=== PATIENT | female | born 1930 | race Caucasian/White ===

== ENCOUNTER 2016-12-02 14:30 | Emergency (ER) | payer BC, MEDICAID, MEDICARE ==
--- NOTE | 2016-12-02 14:55 | Emergency Department Record ---
History of Present Illness - General Chief Complaint: Shortness of breath Stated Complaint: BINB,CHEST PAIN Time Seen by Provider: 12/02/16 14:47 Source: Patient, Family Mode of Arrival: Wheelchair Limitations: Altered mental status - History of Present Illness Initial Comments: The patient is here due to a 3 day hx of mild SOB intermittently per family. The patient has a hx of significant Alzheimers Dz so obtaining a hx from her is not reliable. She also has shoulder and arm pain earlier today but that has resolved with a pain pill. The patient has had a hx of CHF in the past per Family. Presently she denies any pain, discomfort, dyspnea, or shortness of breath. MD Complaint: Shortness of breath Onset/Timin -: Days(s) Known History Of: Congestive heart failure - Related Data Previous Rx's Medication Instructions Recorded Hydrocodone/Acetaminophen [[place] 1 tab PO Q8H PRN #25 tab 11/15/15 7.5mg/325mg] Furosemide [Lasix] 20 mg PO DAILY #5 tablet 12/02/16 Potassium Chloride [Klor-Con M20] 20 meq PO DAILY #5 tab.er.prt 12/02/16 Allergies Allergy/AdvReac Type Severity Reaction Status Date / Time codeine Allergy Severe ANAPHYLAXIS Unverified 05/03/16 16:16 iodine Allergy Severe ANAPHYLAXIS Unverified 05/03/16 16:16 shellfish derived Allergy Severe ANAPHYLAXIS Unverified 05/03/16 16:16 Travel Screening - Travel/Exposure Within Last 30 Days Have you traveled within the last 30 days?: No - Travel/Exposure Within Last Year Have you traveled outside the [place] in the last year?: No - Additonal Travel Details Have you been exposed to anyone with a communicable illness?: No - Travel Symptoms Symptom Screening: None Review of Systems Constitutional: Denies: Chills, Fever Eyes: Denies: Eye discharge ENT: Denies: Congestion Respiratory: Denies: Cough, Dyspnea Past Medical History - SOCIAL HISTORY Smoking Status: Never smoker - RESPIRATORY Hx Respiratory Disorders: No - CARDIOVASCULAR Hx Cardio Disorders: Yes Hx CHF: Yes Hx Hypertension: Yes - NEURO Hx Neuro Disorders: Yes Hx Dementia: Yes Hx Headaches: Yes - GI Hx GI Disorders: No - Hx Genitourinary Disorders: No - ENDOCRINE Hx Endocrine Disorders: Yes Hx Thyroid Disease: Yes (hypo) - MUSCULOSKELETAL Hx Musculoskeletal Disorders: Yes Hx Arthritis: Yes - PSYCH Hx Psych Problems: No - HEMATOLOGY/ONCOLOGY Hx Hematology/Oncology Disorders: No Family Medical History Any Significant Family History?: No Physical Exam - General General Appearance: Alert, Cooperative, No acute distress - Head Head exam: Atraumatic, Normocephalic, Normal inspection - Eye Eye exam: Normal appearance, PERRL - Neck Neck exam: Normal inspection, Full ROM, Other (Neg JVD). negative: Tenderness - Respiratory Respiratory exam: Normal lung sounds bilaterally. negative: Respiratory distress - Cardiovascular Cardiovascular Exam: Regular rate, Normal rhythm, Normal heart sounds - GI/Abdominal GI/Abdominal exam: Soft, Normal bowel sounds. negative: Tenderness - Extremities Extremities exam: Normal inspection, Full ROM, Normal capillary refill. negative: Calf tenderness, Pedal edema, Tenderness - Neurological Neurological exam: Alert. negative: Motor sensory deficit Course Vital Signs 12/02/16 14:31 Temperature 98.7 F Pulse Rate 78 Respiratory 20 Rate Blood Pressure 174/94 Pulse Ox 96 - Reevaluation(s) Reevaluation #1: The patient is doing very well at this time. She denies any CP, SOB, or REYES. Her CXR does demonstrate possibly mild CHF with her BNP slightly elevated from her baseline. I did offer to keep the patient in the hospital overnight but her family is declining. They would just like to have the patient on a short course of Lasix and they feel the strange environment of a hospital would do her more harm than good. I did discuss the case with Cammy CARTER) and she agrees with the plan for discharge and F/U later this week in the office. 12/02/16 15:55 Reevaluation #2: The patient is doing very well at this time. She did urinate once and feels well. Her RA O2 sat is 96% and she feels ready for home. 12/02/16 16:28 Medical Decision Making - Data Complexity MDM Data: Labs Ordered and/or Reviewed, X-Ray Ordered and/or Reviewed, EKG Ordered and/or Reviewed - Lab Data Result diagrams: 12/02/16 14:40 12/02/16 14:40 - EKG Data -: EKG Interpreted by Me EKG: No Acute Changes - Radiology Data Radiology results: Report reviewed (CXR; Possible increased interstitial markings.) Disposition Disposition: Discharge Clinical Impression: CHF (congestive heart failure) Qualifiers: Congestive heart failure type: unspecified congestive heart failure type Congestive heart failure chronicity: unspecified congestive heart failure chronicity Qualified Code(s): I50.9 - Heart failure, unspecified Disposition: Home, Self-Care Condition: (1) Good Instructions: Dyspnea (ED) Additional Instructions: Please continue your regular medicines. Take the Lasix as directed. Please see your Family practice doctor later this week as planned. Return to the ER for any worsening symptoms. Prescriptions: Furosemide [Lasix] 20 mg PO DAILY #5 tablet Potassium Chloride [Klor-Con M20] 20 meq PO DAILY #5 tab.er.prt Forms: Patient Portal Access Time of Disposition: 16:30 Quality - Quality Measures Quality Measures: N/A - Blood Pressure Screening View Details: Yes Does Patient Have Any of the Following: No Blood Pressure Classification: Hypertensive Reading Systolic Measurement: 155 Diastolic Measurement: 92 Screening for High Blood Pressure: < Pre-Hypertensive BP, F/U Documented > [ G8950] Pre-Hypertensive Follow-up Interventions: Referral to alternative/primary care provider.
[2016-12-02 15:03] LABS: HEMATOCRIT 39.9 % (35.0-47.0); HEMOGLOBIN 13.2 gm/dl (11.6-16.0); MEAN CELL VOLUME 87.1 fl (81-97); MEAN CORPUSCULAR HEMOGLOBIN 28.8 pg (27-33); MEAN CORPUSCULAR HGB CONC 33.1 g/dl (32-36); MEAN PLATELET VOLUME 9.6 fl (7.4-10.4); PLATELET COUNT 345 K/uL (130-400); RED BLOOD COUNT 4.58 M/uL (3.80-5.40); RED CELL DISTRIBUTION WIDTH 14.3 % (11.5-14.5); WHITE BLOOD COUNT W/O DIFF 14.8 K/uL (4.2-12.2)
[2016-12-02 15:18] LABS: PLATELET ESTIMATE NORMAL (NORMAL)
[2016-12-02 15:29] LABS: BLOOD UREA NITROGEN 15 mg/dL (8-23); CREATINE PHOSPHOKINASE 21 U/L (26-192); CREATININE 0.6 mg/dL (0.5-0.9); EST GLOMERULAR FILTRATION RATE > 60 mL/min; GLUCOSE,RANDOM 167 mg/dL (74-109)
[2016-12-02 15:30] LABS: CKMB < 1.0 ng/mL (<3.77); TROPONIN I < 0.30 ng/mL (0.00-0.300)
[2016-12-02 15:31] LABS: INR 1.1; PARTIAL THROMBOPLASTIN TIME 30.3 SECONDS (24.5-39.1); PROTHROMBIN TIME (PATIENT) 11.9 SECONDS (9.5-12.1)
[2016-12-02] MEDS ORDERED: FUROSEMIDE IV 20MG/2ML VIAL IVP ONE (15:38)
--- NOTE | 2016-12-03 14:14 | RADIOLOGY REPORT ---
EXAM: CHEST, TWO VIEWS HISTORY: PATIENT HAS CHEST PAIN. TECHNIQUE: Two views of the chest are provided along with the comparison study dated 04/10/16. FINDINGS: The cardiac silhouette is magnified. Tortuosity of the thoracic aorta is noted. The lg appear unremarkable. There is no radiographic evidence of a focal infiltrate, pleural effusion, or pneumothorax. Chronic interstitial changes are identified bilaterally. Advanced osteoarthritic changes of the left shoulder are identified. IMPRESSION: STABLE CHRONIC INTERSTITIAL CHANGES WITH RESPECT TO THE PRIOR EXAMINATION DISCUSSED ABOVE WITHOUT RADIOGRAPHIC EVIDENCE OF AN ACUTE PROCESS. JOB NUMBER: [id number] [facility]
== END 2016-12-02 16:46 | disposition home or self-care (01) ==
LOC: ER 14:30
DX: I50.9 Heart failure, unspecified (principal); I10 Essential (primary) hypertension; G30.9 Alzheimer's disease, unspecified; F02.80 Dementia in other diseases classified elsewhere, unspecified severity, without behavioral disturbance, psychotic disturbance, mood disturbance, and anxiety
CPT/HCPCS: 71020; 80048; 82550; 82553; 83880; 84484; 85027; 85610; 85730; 93005; 93010; 96374; 99284; J1940

== ENCOUNTER 2017-05-04 13:53 | Emergency (ER) | payer MEDICARE ==
[2017-05-04] MEDS ORDERED: ACETAMINOPHEN 325 MG TAB PO ONE (14:15)
--- NOTE | 2017-05-04 14:21 | Emergency Department Record ---
History of Present Illness - General Chief complaint: Pain Stated complaint: HIP PAIN Time Seen by Provider: 05/04/17 14:10 Source: Patient, Family Mode of Arrival: Ambulatory Limitations: No limitations - History of Present Illness Initial comments: The patient is here with her daughter due to R hip pain. She fell 2 nights ago when she was trying to find the bathroom at night. The fall was not witnessed but since she has had R hip pain. The patient has denied any head or neck pain. Per the patient's daughter she did fall a month ago also but was not seen. 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 There is no hx of new confusion, or any recent illnesses. The patient has a hx of chronic dementia but there are no acute changes presently. MD Complaint: Joint pain Onset/Timin -: Days(s) Location: Right, Other Consistency: Constant Improves with: Nothing Worsens with: Walking, Weight bearing Associated Symptoms: Denies other symptoms - Related Data Allergies Allergy/AdvReac Type Severity Reaction Status Date / Time codeine Allergy Severe ANAPHYLAXIS Unverified 04/08/17 14:37 iodine Allergy Severe ANAPHYLAXIS Unverified 04/08/17 14:37 shellfish derived Allergy Severe ANAPHYLAXIS Unverified 04/08/17 14:37 Travel Screening - Travel/Exposure Within Last 30 Days Have you traveled within the last 30 days?: No Review of Systems Constitutional: Denies: Chills, Fever Eyes: Denies: Eye discharge ENT: Denies: Congestion Respiratory: Denies: Cough, Dyspnea Past Medical History - SOCIAL HISTORY Smoking Status: Never smoker - RESPIRATORY Hx Respiratory Disorders: No - CARDIOVASCULAR Hx Cardio Disorders: Yes Hx CHF: Yes Hx Hypertension: Yes - NEURO Hx Neuro Disorders: Yes Hx Dementia: Yes Hx Headaches: Yes - GI Hx GI Disorders: No - Hx Genitourinary Disorders: No - ENDOCRINE Hx Endocrine Disorders: Yes Hx Thyroid Disease: Yes (hypo) - MUSCULOSKELETAL Hx Musculoskeletal Disorders: Yes Hx Arthritis: Yes - PSYCH Hx Psych Problems: No - HEMATOLOGY/ONCOLOGY Hx Hematology/Oncology Disorders: No Family Medical History Any Significant Family History?: No Physical Exam - General General Appearance: Alert, Cooperative, No acute distress - Head Head exam: Atraumatic, Normocephalic, Normal inspection - Eye Eye exam: Normal appearance, PERRL, EOMI - ENT Throat exam: Normal inspection. negative: Tonsillar erythema, Tonsillar exudate - Neck Neck exam: Normal inspection, Full ROM. negative: Tenderness - Respiratory Respiratory exam: Normal lung sounds bilaterally. negative: Respiratory distress - Cardiovascular Cardiovascular Exam: Regular rate, Normal rhythm, Normal heart sounds - GI/Abdominal GI/Abdominal exam: Soft, Normal bowel sounds. negative: Tenderness - Extremities Extremities exam: Normal inspection, Full ROM (There is normal ROM of the hips bilaterally with no discomfort.), Normal capillary refill. negative: Joint swelling, Pedal edema, Tenderness - Neurological Neurological exam: Alert, Normal gait. negative: Abnormal gait, Altered, Motor sensory deficit - Psychiatric Psychiatric exam: negative: Agitated, Anxious Course Vital Signs 05/04/17 14:03 Temperature 99.0 F Pulse Rate 72 Respiratory 20 Rate Blood Pressure 137/70 Pulse Ox 98 - Reevaluation(s) Reevaluation #1: I did discuss the plan with the patient and daughter. There are no acute changes on the xrays but there is advanced arthritis of the R hip. Since the patient is stable and the daughter feels comfortable taking the patient home she is to receive TYlenol for pain and to see Dr. Irizarry for further issues relating to the L hip. She also is to see Dr. Kebede regarding the Xarelto and the frequent falls. 05/04/17 15:32 Medical Decision Making - Data Complexity MDM Data: X-Ray Ordered and/or Reviewed - Radiology Data Radiology results: Report reviewed (Head CT: No acute changes. R Hip: Stable post op changes, R hip. Advanced arthritis L hip.) Disposition Disposition: Discharge Clinical Impression: Arthritis, hip Disposition: Home, Self-Care Condition: (2) Stable Instructions: Hip Pain (ED) Additional Instructions: Please use Tylenol for pain and please see Dr. Irizarry about the L hip. Also please make an appointment with Dr. Kebede regarding the Xarelto and hx of frequent falls. Return to the ER for any problems or new issues. Forms: Patient Portal Access Time of Disposition: 15:32 Quality - Quality Measures Quality Measures: N/A - Blood Pressure Screening View Details: Yes Does Patient Have Any of the Following: No Blood Pressure Classification: Pre-Hypertensive BP Reading Systolic Measurement: 151 Diastolic Measurement: 81 Screening for High Blood Pressure: < Pre-Hypertensive BP, F/U Documented > [ G8950] Pre-Hypertensive Follow-up Interventions: Referral to alternative/primary care provider.
--- NOTE | 2017-05-05 17:46 | CT SCAN REPORT ---
EXAM: CT SCAN HEAD WO CONTRAST HISTORY: NOT GIVEN. TECHNIQUE: CT brain without. COMPARISON: None. FINDINGS: The globes are intact. The paranasal sinuses and mastoid air cells are unremarkable. No displaced or depressed skull fracture. No intra or extraaxial hemorrhage. Diffuse atrophy. Hypodensities in the periventricular and subcortical white matter consistent with small vessel ischemic change. 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 No evidence for intraaxial mass or midline shift. Basal ganglia calcifications. CT limited for evaluation of acute infarct. No CT evidence for large or territorial acute infarct. IMPRESSION: NEGATIVE FOR ACUTE INTRACRANIAL ABNORMALITY. ATROPHY. SMALL VESSEL ISCHEMIC CHANGE. JOB [facility]BER: [id number] [facility]
--- NOTE | 2017-05-05 17:48 | RADIOLOGY REPORT ---
EXAM: HIP,UNILAT, 2-3 VIEW RIGHT HISTORY: PAIN TECHNIQUE: AP pelvis and two views of the right hip. COMPARISON: None. ENCOUNTER: Initial. FINDINGS: Osteopenia. Advanced degenerative change of the left hip. Vascular calcifications. Status post total right hip arthroplasty. Negative for acute fracture or dislocation. IMPRESSION: OSTEOPENIA. ADVANCED DEGENERATIVE CHANGES OF THE RIGHT HIP. NO CONVINCING EVIDENCE FOR AN ACUTE FRACTURE OR DISLOCATION. CORRELATION WITH ANY HISTORY OF INABILITY TO AMBULATE. ADVANCED DEGENERATIVE CHANGE LEFT HIP. [facility]BER: [id number] [facility]
== END 2017-05-04 15:45 | disposition home or self-care (01) ==
LOC: ER 13:53
DX: M16.11 Unilateral primary osteoarthritis, right hip (principal); I10 Essential (primary) hypertension; I50.9 Heart failure, unspecified; F03.90 Unspecified dementia, unspecified severity, without behavioral disturbance, psychotic disturbance, mood disturbance, and anxiety; Z79.01 Long term (current) use of anticoagulants; Z91.81 History of falling
CPT/HCPCS: 70450; 99283; 99284

== ENCOUNTER 2017-09-08 10:16 | Emergency (ER) | payer MEDICARE ==
[2017-09-08] MEDS ORDERED: ASPIRIN 81 MG CHEWABLE TABLET PO ONE (10:46)
--- NOTE | 2017-09-08 10:47 | Emergency Department Record ---
History of Present Illness - General Chief Complaint: Shortness of breath Stated Complaint: REYES Time Seen by Provider: 09/08/17 10:30 Source: Patient, Family Mode of Arrival: Wheelchair Limitations: No limitations - History of Present Illness Initial Comments: 87 yo female presents with two days of changes in her breathing per the family. She has been noted to be short of breath, fatigued, more sleepy. At times she has appears sweaty. No fever or cough. The patient has advanced Alzheimer' s Dementia. She appears comfortable and denies any symptoms. She states she is not short of breath or having chest pain. Family states she has CHF. No history of CAD. NO history of NM. She has had DVT on Xarelto. Dr Kebede is her doctor. MD Complaint: Shortness of breath Onset/Timin -: Days(s) Severity: Mild Consistency: Constant Improves With: Nothing Worsens With: Exertion Associated Symptoms: Denies other symptoms Treatments Prior to Arrival: None - Related Data Home Oxygen Therapy: No Home Medications Medication Instructions Recorded Confirmed Last Taken Hydrocodone/Acetaminophen 10 mg PO Q6H PRN 09/08/17 09/08/17 Unknown [Hydrocodone/Acetaminophen 7.5mg/325mg] Allergies Allergy/AdvReac Type Severity Reaction Status Date / Time codeine Allergy Severe ANAPHYLAXIS Unverified 04/08/17 14:37 iodine Allergy Severe ANAPHYLAXIS Unverified 04/08/17 14:37 shellfish derived Allergy Severe ANAPHYLAXIS Unverified 04/08/17 14:37 Travel Screening - Travel/Exposure Within Last 30 Days Have you traveled within the last 30 days?: No Review of Systems ROS unobtainable: Due to mental status (Alzheimer's dementia. Alert but denies any symptoms) Past Medical History - SOCIAL HISTORY Smoking Status: Never smoker Alcohol Use: None Drug Use: None - RESPIRATORY Hx Respiratory Disorders: No - CARDIOVASCULAR Hx Cardio Disorders: Yes Hx CHF: Yes Hx Hypertension: Yes - NEURO Hx Neuro Disorders: Yes Hx Dementia: Yes Hx Headaches: Yes - GI Hx GI Disorders: No - Hx Genitourinary Disorders: No - ENDOCRINE Hx Endocrine Disorders: Yes Hx Thyroid Disease: Yes (hypo) - MUSCULOSKELETAL Hx Musculoskeletal Disorders: Yes Hx Arthritis: Yes - PSYCH Hx Psych Problems: No - HEMATOLOGY/ONCOLOGY Hx Hematology/Oncology Disorders: No Family Medical History Any Significant Family History?: No Physical Exam - General General Appearance: Alert, Cooperative, No acute distress, Other (Non labored, appears comfortable) Limitations: No limitations - Head Head exam: Atraumatic, Normal inspection - Eye Eye exam: Normal appearance, PERRL. negative: Conjunctival injection - ENT ENT exam: Normal exam Ear exam: Normal external inspection Nasal Exam: Normal inspection Mouth exam: Normal external inspection - Neck Neck exam: Normal inspection - Respiratory Respiratory exam: Decreased breath sounds. negative: Accessory muscle use, Prolonged expiratory, Respiratory distress, Rhonchi, Stridor, Wheezes - Cardiovascular Cardiovascular Exam: Regular rate, Normal rhythm, Normal heart sounds Peripheral Pulses: 2+: Radial (R), Radial (L) - GI/Abdominal GI/Abdominal exam: Soft. negative: Tenderness - Rectal Rectal exam: Deferred - exam: Deferred - Extremities Extremities exam: Normal inspection. negative: Calf tenderness, Pedal edema, Tenderness - Back Back exam: Reports: Normal inspection, Full ROM. Denies: Muscle spasm, Rash noted, Tenderness - Neurological Neurological exam: Alert. negative: Altered - Psychiatric Psychiatric exam: Normal affect, Normal mood - Skin Skin exam: Dry, Intact, Normal color, Warm Course Vital Signs 09/08/17 10:18 Temperature 98.1 F Pulse Rate 96 H Respiratory 22 Rate Blood Pressure 121/77 Pulse Ox 93 L - Reevaluation(s) Reevaluation #1: EKG#1 1029 Rate 107 Rhythm Sinus with PACs [place] Normal Intervals [id number] ST New Q waves in the inferior leads with t wave inversion inferior. Poor R wave progress Prior 12/02/16 No inferior changes The patient is currently asymptomatic. Non labored. 09/08/17 10:44 09/08/17 11:09 The CBC was reviewed. Hgb is 9.1 prior was 13.2 09/08/17 11:14 BUN is 35 CR is 1.1 09/08/17 11:18 Rectal examination demonstrated brown stool that is Heme Positive with positive control 09/08/17 11:21 Troponin is 0.788 09/08/17 11:23 CHF on CXR 09/08/17 11:31 I discussed the case with Dr Goode. He agrees with plan of transfer to [facility] Requests IM admission due to numerous co-morbidities 09/08/17 11:36 Dr Parker accepts the patient for transfer. No heparin at this time given she is asymptomatic with drop in Hgb/possible GI bleed. Medical Decision Making - Lab Data Result diagrams: 09/08/17 10:25 09/08/17 10:25 Disposition Disposition: Transfer Clinical Impression: Anemia, Dyspnea, Heme positive stool, Elevated troponin, CHF (congestive heart failure) Disposition: Acute Care Hospital Transfer Transfer [facility]: [facility] Reason For Transfer: elevated troponin, anemia Accepting Physician: Elena Time Discussed w/Accepting Physician: 11:36 Condition: (2) Stable Forms: Patient Portal Access Time of Disposition: 11:28 Quality - Quality Measures Quality Measures: N/A - Blood Pressure Screening Does Patient Have Any of the Following: Active Dx of HTN Blood Pressure Classification: Pre-Hypertensive BP Reading Systolic Measurement: 121 Diastolic Measurement: 77 Screening for High Blood Pressure: Patient Exclusion, Hx of HTN [G9744]
[2017-09-08 10:52] LABS: BASO % 0.5 % (0-6); EOS % 0.3 % (0-6); GRAN % 75.2 % (47-80); HEMATOCRIT 30.5 % (35.0-47.0); HEMOGLOBIN 9.1 gm/dl (11.6-16.0); LYMPH % 16.2 % (16-45); MEAN CELL VOLUME 80.9 fl (81-97); MEAN CORPUSCULAR HGB CONC 29.8 g/dl (32-36); MEAN PLATELET VOLUME 10.4 fl (7.4-10.4); MONO % 7.8 % (0-9); RED BLOOD COUNT 3.77 M/uL (3.80-5.40)
[2017-09-08 11:01] LABS: MEAN CORPUSCULAR HEMOGLOBIN 24.1 pg (27-33); RED CELL DISTRIBUTION WIDTH 16.1 % (11.5-14.5)
[2017-09-08 11:02] LABS: PLATELET COUNT 455 K/uL (130-400)
[2017-09-08 11:03] LABS: INR 1.4; PARTIAL THROMBOPLASTIN TIME 28.6 SECONDS (24.5-39.1)
[2017-09-08 11:05] LABS: BILIRUBIN,TOTAL 0.7 mg/dL (0.2-1.0)
[2017-09-08 11:06] LABS: TOTAL PROTEIN 6.8 g/dL (6.6-8.7)
[2017-09-08 11:11] LABS: ALB/GLOB RATIO 1.4 (1.1-1.8)
[2017-09-08] MEDS ORDERED: FUROSEMIDE IV 20MG/2ML VIAL IVP ONE (11:23)
[2017-09-08 12:29] LABS: URINE APPEARANCE CLEAR; URINE BILIRUBIN LARGE (NEGATIVE); URINE BLOOD NEGATIVE (NEGATIVE); URINE COLOR YELLOW; URINE GLUCOSE (UA) NEGATIVE (NEGATIVE); URINE KETONE NEGATIVE (NEGATIVE); URINE LEUKOCYTE ESTERASE SMALL (NEGATIVE); URINE NITRITE NEGATIVE (NEGATIVE); URINE PROTEIN NEGATIVE (NEGATIVE); URINE UROBILINOGEN 0.2 E.U./dL (0.20 - 1.00)
[2017-09-08 12:33] LABS: URINE BACTERIA FEW; URINE EPITHELIAL CELLS 0 - 2 (FEW); URINE RBC NONE SEEN (NONE SEEN)
--- NOTE | 2017-09-09 10:56 | RADIOLOGY REPORT ---
EXAM: AP PORTABLE CHEST HISTORY: DYSPNEA AND WEAKNESS. TECHNIQUE: An AP portable view of the chest was obtained. FINDINGS: There is cardiomegaly and pulmonary vascular congestion. Aortic atherosclerosis. Mild interstitial prominence. There may be air space disease within the left lung base. Suspect small bilateral pleural effusions. Similar advanced degenerative change within the left glenohumeral joint. Mild degenerative change on the right. IMPRESSION: CONSTELLATION OF FINDINGS SUGGESTING CHF/FLUID OVERLOAD IN THE APPROPRIATE CLINICAL SETTING. OTHERWISE, INFECTIOUS INFILTRATES ALSO WOULD BE POSSIBLE. J[facility]BER: [id number] [facility]
== END 2017-09-08 13:11 | disposition short-term general hospital (02) ==
LOC: ER 10:16
DX: R79.89 Other specified abnormal findings of blood chemistry (principal); D64.9 Anemia, unspecified; R19.5 Other fecal abnormalities; R06.00 Dyspnea, unspecified; I50.9 Heart failure, unspecified; G30.9 Alzheimer's disease, unspecified; F02.80 Dementia in other diseases classified elsewhere, unspecified severity, without behavioral disturbance, psychotic disturbance, mood disturbance, and anxiety; R53.1 Weakness; I10 Essential (primary) hypertension; Z79.01 Long term (current) use of anticoagulants
CPT/HCPCS: 71045; 80053; 81001; 83880; 84484; 85025; 85610; 85730; 93005; 93010; 96374; 99285; J1940

== ENCOUNTER 2017-09-14 10:05 | Emergency (ER) | payer MEDICARE ==
--- NOTE | 2017-09-14 11:08 | Emergency Department Record ---
History of Present Illness - General Chief Complaint: Difficulty Breathing Stated Complaint: REYES,COUGH HAS CONGESTIVE HEAR FAIL Time Seen by Provider: 09/14/17 10:45 Source: Patient, RN notes reviewed Mode of Arrival: Wheelchair - History of Present Illness Initial Comments: patient was released from [facility] ago and yesterday more wheezing and SOB with walking. PMH CHF and on xarelto and and her weight is down two pounds. PMH Dr Kebede and family is concerned she has pneumonia,history of CHF and atrial fib. Onset/Timin -: Days(s) Worsens With: Exertion, Movement Known History Of: Congestive heart failure Associated Symptoms: Chest pain, Cough Treatments Prior to Arrival: None - Related Data Home Oxygen Therapy: No Home Medications Medication Instructions Recorded Confirmed Last Taken Digoxin 125 mcg PO QHS 09/14/17 09/14/17 Unknown Ferrous Sulfate 325 mg PO DAILY 09/14/17 09/14/17 Unknown Furosemide [Lasix] 20 mg PO DAILY 09/14/17 09/14/17 Unknown Metoprolol Succinate 12.5 mg PO DAILY 09/14/17 09/14/17 09/14/17 Previous Rx's Medication Instructions Recorded Azithromycin [Zithromax] 250 mg PO DAILY #6 tab 09/14/17 Allergies Allergy/AdvReac Type Severity Reaction Status Date / Time codeine Allergy Severe ANAPHYLAXIS Verified 09/14/17 10:45 iodine Allergy Severe ANAPHYLAXIS Verified 09/14/17 10:45 shellfish derived Allergy Severe ANAPHYLAXIS Verified 09/14/17 10:45 Travel Screening - Travel/Exposure Within Last 30 Days Have you traveled within the last 30 days?: No Past Medical History - SOCIAL HISTORY Smoking Status: Never smoker Alcohol Use: None Drug Use: None - RESPIRATORY Hx Respiratory Disorders: No - CARDIOVASCULAR Hx Cardio Disorders: Yes Hx CHF: Yes Hx Heart Attack: Yes Hx Hypertension: Yes - NEURO Hx Neuro Disorders: Yes Hx Dementia: Yes Hx Headaches: Yes - GI Hx GI Disorders: No - Hx Genitourinary Disorders: No - ENDOCRINE Hx Endocrine Disorders: Yes Hx Thyroid Disease: Yes (hypo) - MUSCULOSKELETAL Hx Musculoskeletal Disorders: Yes Hx Arthritis: Yes - PSYCH Hx Psych Problems: No - HEMATOLOGY/ONCOLOGY Hx Hematology/Oncology Disorders: No Family Medical History Any Significant Family History?: No Course Vital Signs 09/14/17 10:38 Temperature 98.5 F Pulse Rate 91 H Respiratory 18 Rate Blood Pressure 119/88 Pulse Ox 96 - Reevaluation(s) Reevaluation #1: discussed case with Dr. Hedrick and she is end stage CHF and only on medication to stabilize. patient is a DNR 09/14/17 13:47 Reevaluation #2: patient's trop T is coming down from one week ago and she had an ND 09/14/17 13:49 Medical Decision Making - Data Complexity MDM Data: Labs Ordered and/or Reviewed, X-Ray Ordered and/or Reviewed, EKG Ordered and/or Reviewed (sinus rhytm with PAC's and No acute changes) - Lab Data Result diagrams: 09/14/17 10:55 09/14/17 10:55 Disposition Clinical Impression: Bronchitis, Elevated troponin CHF (congestive heart failure) Qualifiers: Heart failure type: systolic Heart failure chronicity: acute on chronic Qualified Code(s): I50.23 - Acute on chronic systolic (congestive) heart failure Disposition: Home, Self-Care Condition: (1) Good Instructions: Heart Failure (ED) Additional Instructions: follow up with Dr Kebede in one week Prescriptions: Azithromycin [Zithromax] 250 mg PO DAILY #6 tab Forms: Patient Portal Access Time of Disposition: 13:51 Quality - Quality Measures Quality Measures: N/A - Blood Pressure Screening Does Patient Have Any of the Following: No Blood Pressure Classification: Pre-Hypertensive BP Reading Systolic Measurement: 119 Diastolic Measurement: 88 Screening for High Blood Pressure: < Pre-Hypertensive BP, F/U Documented > [ G8950] Pre-Hypertensive Follow-up Interventions: Referral to alternative/primary care provider.
[2017-09-14 11:10] LABS: BASO % 0.9 % (0-6); EOS % 0.9 % (0-6); GRAN % 68.4 % (47-80); HEMATOCRIT 32.2 % (35.0-47.0); HEMOGLOBIN 9.2 gm/dl (11.6-16.0); LYMPH % 19.6 % (16-45); MEAN CELL VOLUME 82.8 fl (81-97); MEAN CORPUSCULAR HGB CONC 28.6 g/dl (32-36); MEAN PLATELET VOLUME 10.2 fl (7.4-10.4); MONO % 10.2 % (0-9); PLATELET COUNT 368 K/uL (130-400); RED BLOOD COUNT 3.89 M/uL (3.80-5.40); RED CELL DISTRIBUTION WIDTH 17.6 % (11.5-14.5); WHITE BLOOD COUNT W/O DIFF 10.2 K/uL (4.2-12.2)
[2017-09-14 11:19] LABS: BLOOD UREA NITROGEN 27 mg/dL (8-23); CREATININE 0.8 mg/dL (0.5-0.9); EST GLOMERULAR FILTRATION RATE > 60 mL/min
[2017-09-14 11:22] LABS: GLUCOSE,RANDOM 138 mg/dL (74-109)
[2017-09-14 11:23] LABS: INR 1.2; PARTIAL THROMBOPLASTIN TIME 28.2 SECONDS (24.5-39.1); PROTHROMBIN TIME (PATIENT) 13.1 SECONDS (9.5-12.1)
[2017-09-14 11:26] LABS: MEAN CORPUSCULAR HEMOGLOBIN 23.6 pg (27-33)
[2017-09-14] MEDS ORDERED: AZITHROMYCIN 500 MG TABLET PO ONE (13:44)
--- NOTE | 2017-09-15 20:33 | RADIOLOGY REPORT ---
EXAM: CHEST 2 VIEWS HISTORY: SHORTNESS OF BREATH. TECHNIQUE: Two-view chest. COMPARISON: Single-view chest 09/08/2017. FINDINGS: Frontal and lateral views of the chest show slightly increased lung volumes. Bibasilar opacities are again noted. Small bilateral pleural effusion. Cardiac silhouette size is upper normal. No pulmonary vascular congestion. Bony structures show severe destructive change of the left glenohumeral joint. Severe degenerative change of the right glenohumeral joint. Osteoporosis noted. IMPRESSION: BIBASILAR ATELECTASIS AND/OR AIR SPACE DISEASE, SIMILAR TO PREVIOUS EXAM. THERE ARE TINY PLEURAL EFFUSIONS THAT HAVE DEVELOPED IN THE INTERIM. JOB NUMBER: [id number] [facility]
== END 2017-09-14 14:14 | disposition home or self-care (01) ==
LOC: ER 10:05
DX: I50.23 Acute on chronic systolic (congestive) heart failure (principal); I48.91 Unspecified atrial fibrillation; E03.9 Hypothyroidism, unspecified; I10 Essential (primary) hypertension
CPT/HCPCS: 71046; 80048; 80162; 84484; 85025; 85610; 85730; 93005; 93010; 99284